=== PATIENT | female | born 1950 | race Hispanic/Latino ===

== ENCOUNTER → 2018-03-20 | Outpatient (CLI) | payer OTHER ==
[~2018-03-20] MED LIST: ASPI-555 PO; CALC600T12 PO; LOSA1TAB37 PO; METF500T6 PO; MULT-950 PO; PRAV20TA4 PO
== END | disposition home or self-care (01) ==
LOC: RAH 08:37
PROVIDERS: ATTEND Internal Medicine Critical Care Medicine
DX: K76.89 Other specified diseases of liver (principal); R06.02 Shortness of breath; R94.5 Abnormal results of liver function studies
CPT/HCPCS: 71046; 76700

== ENCOUNTER → 2018-04-13 | Outpatient (CLI) | payer SELFPAY | END | disposition home or self-care (01) | LOC: OIH 12:10 | PROVIDERS: ATTEND Internal Medicine Cardiovascular Disease | DX: Z13.6 Encounter for screening for cardiovascular disorders (principal) | CPT/HCPCS: 75571 ==

== ENCOUNTER → 2018-12-03 | Outpatient (CLI) | payer OTHER ==
[~2018-12-03] MED LIST changes: +GADODIAMIDE 10 MMOL/20 ML ML IV ONE; +METF-444 PO; -METF500T6 PO
== END | disposition home or self-care (01) ==
LOC: RAH 11:42
PROVIDERS: ATTEND Internal Medicine Critical Care Medicine
DX: M62.81 Muscle weakness (generalized) (principal)
CPT/HCPCS: 70553; A9579

== ENCOUNTER → 2019-01-16 | Outpatient (CLI) | payer OTHER ==
[~2019-01-16] MED LIST changes: -GADODIAMIDE 10 MMOL/20 ML ML IV ONE; +GADODIAMIDE 5 MMOL/10 ML VIAL 5 MMOL/10 ML ML IV ONE
== END | disposition home or self-care (01) ==
LOC: RAH 06:29
PROVIDERS: ATTEND Internal Medicine
DX: M16.0 Bilateral primary osteoarthritis of hip (principal); M33.20 Polymyositis, organ involvement unspecified
CPT/HCPCS: 73720 ×2; A9579

== ENCOUNTER → 2019-01-17 | Outpatient (CLI) | payer OTHER | END | disposition home or self-care (01) | LOC: RAH 06:44 | PROVIDERS: ATTEND Internal Medicine | DX: M33.20 Polymyositis, organ involvement unspecified (principal) | CPT/HCPCS: 72197; A9579 ==

== ENCOUNTER → 2019-04-26 | Outpatient (CLI) | payer OTHER ==
[~2019-04-26] MED LIST changes: -GADODIAMIDE 5 MMOL/10 ML VIAL 5 MMOL/10 ML ML IV ONE
== END | disposition home or self-care (01) ==
LOC: RAH 08:09
PROVIDERS: ATTEND Internal Medicine Critical Care Medicine
DX: M89.8X5 Other specified disorders of bone, thigh (principal); K76.89 Other specified diseases of liver
CPT/HCPCS: 73552; 76705

== ENCOUNTER → 2019-05-17 | Outpatient (CLI) | payer OTHER | END | disposition home or self-care (01) | LOC: RAH 14:00 | PROVIDERS: ATTEND Orthopaedic Surgery | DX: M51.36 Other intervertebral disc degeneration, lumbar region (principal); M48.062 Spinal stenosis, lumbar region with neurogenic claudication | CPT/HCPCS: 72148 ==

== ENCOUNTER 2019-05-30 07:56 | Day surgery (SDC) | payer OTHER ==
[2019-05-24 11:04] LABS: BASOPHILS % (AUTO) 0.4 % (0.0-5.0); EOSINOPHILS % (AUTO) 0.9 % (0.0-8.0); HEMATOCRIT 37.7 % (36-48); LYMPHOCYTES % (AUTO) 20.6 % (21.0-51.0); MEAN CORPUSCULAR HGB CONC 34.7 g/dL (32.0-36.0); MEAN CORPUSCULAR VOLUME 92.3 fL (79-99); MONOCYTES % (AUTO) 4.9 % (3.0-13.0); NEUTROPHILS % (AUTO) 73.2 % (40.0-77.0); PLATELET COUNT (AUTO) 211 K/uL (130-400); RED BLOOD CELL COUNT(AUTO) 4.08 MIL/uL (4.00-5.50); RED CELL DISTRIBUTION WIDTH 13.1 % (11.0-15.5); WHITE BLOOD COUNT (AUTO) 8.3 K/uL (4.8-10.8)
[2019-05-24 11:13] LABS: CREATININE 0.6 mg/dL (0.5-1.5); POTASSIUM 4.4 mmol/L (3.5-5.1)
[2019-05-24 11:51] VITALS: BP 168/76
[~2019-05-30] VITALS: Ht 154.9 cm; Wt 70.8 kg
[2019-05-30] VITALS (14 sets, daily range): BP systolic 118–149; BP diastolic 42–72
[~2019-05-30 07:56] MED LIST changes: -CALC600T12 PO; +FOLI1TAB15 PO; +LISI1TAB27 PO; -LOSA1TAB37 PO; +METO-391 PO; -MULT-950 PO; -PRAV20TA4 PO
[2019-05-30] MEDS ORDERED: SODIUM CHLORIDE 0.9% 1000ML 1,000 ML IV ONE (08:37)
[2019-05-30] MEDS ORDERED: BUPIVACAINE/PF 0.25% 50ML VIAL IJ ONE (10:55)
[2019-05-30] MEDS ORDERED: LIDOCAINE 1%-EPI 1:100,000 20 ML VIAL IJ ONE (11:30)
[2019-05-30] MEDS ORDERED: LIDOCAINE HCL 1% 20 ML VIAL ONE (11:31)
[2019-05-30] MEDS ORDERED: CEFAZOLIN SODIUM 1 GM VIAL IVP ONE (11:31)
[2019-05-30] MEDS: LIDOCAINE HCL 2% 20ML ONE (11:32)
== END 2019-05-30 13:34 | disposition home or self-care (01) ==
LOC: DAH 07:56
PROVIDERS: ATTEND Orthopaedic Surgery
DX: M60.812 Other myositis, left shoulder (principal); M62.81 Muscle weakness (generalized); E11.9 Type 2 diabetes mellitus without complications; I10 Essential (primary) hypertension; E78.00 Pure hypercholesterolemia, unspecified; Z79.899 Other long term (current) drug therapy; Z79.84 Long term (current) use of oral hypoglycemic drugs; Z79.82 Long term (current) use of aspirin; Z82.49 Family history of ischemic heart disease and other diseases of the circulatory system; Z82.5 Family history of asthma and other chronic lower respiratory diseases
CPT/HCPCS: 20200; 36415; 80048; 82948 ×2; 85025; 88305; 93005; A4248; A4450; A4930; A6207; A6223; J0690; J3490; J7030 ×2

== ENCOUNTER 2019-08-11 21:56 | Emergency (ER) | payer OTHER ==
[~2019-08-11 21:56] MED LIST changes: -LISI1TAB27 PO; +LISI1TAB28 PO
[2019-08-11] MEDS ORDERED: TETANUS/DIPHTHERIA TOXOID [ADULT] 0.5 ML VIAL IM ONE (22:26)
== END 2019-08-12 03:13 | disposition home or self-care (01) ==
LOC: EDH 21:56
DX: S01.01XA Laceration without foreign body of scalp, initial encounter (principal); I10 Essential (primary) hypertension; E11.9 Type 2 diabetes mellitus without complications; E78.5 Hyperlipidemia, unspecified; W18.39XA Other fall on same level, initial encounter; Y93.89 Activity, other specified; Y92.89 Other specified places as the place of occurrence of the external cause; Y99.8 Other external cause status
CPT/HCPCS: 12032; 70450; 90471; 90714